=== PATIENT | female | born 1995 | race Caucasian/White ===

== ENCOUNTER → 2021-07-07 | Outpatient (REF) | payer OTHER | LOC: M LAB REF 20:07 | PROVIDERS: ATTEND Physician Assistant | DX: N39.0 Urinary tract infection, site not specified (principal) ==

== ENCOUNTER → 2022-02-25 | Outpatient (REF) | payer OTHER ==
[2022-02-25 15:38] LABS: APPEARANCE, URINE MANUAL CLOUDY (CLEAR); BILIRUBIN, URINE MANUAL NEGATIVE (NEGATIVE); BLOOD URINE MANUAL POSITIVE (NEGATIVE); COLOR, URINE MANUAL YELLOW (YELLOW); GLUCOSE, URINE (UA) MANUAL NEGATIVE (NEGATIVE); KETONE, URINE MANUAL NEGATIVE (NEGATIVE); LEUKOCYTE ESTERASE, URINE MAN POSITIVE (NEGATIVE); NITRITE, URINE MANUAL NEGATIVE (NEGATIVE); PROTEIN, URINE MANUAL 1+ mg/dL (NEGATIVE); UROBILINOGEN, URINE MANUAL NORMAL (NORMAL)
[2022-02-25 15:48] LABS: BACTERIA, URINE MOD AMOUNT; HYALINE CAST, URINE NONE SEEN /lpf (0-1); SQUAMOUS EPITHELIAL CELL URINE MOD AMOUNT /hpf (SMALL AMT); WBC, URINE TNTC /hpf (0-3)
== END ==
LOC: M LAB REF 15:28
PROVIDERS: ATTEND Physician Assistant
DX: N39.0 Urinary tract infection, site not specified (principal)

== ENCOUNTER 2022-06-15 11:56 | Inpatient (IN) | payer OTHER ==
[~2022-06-15] VITALS: Ht 165.1 cm; Wt 51.4 kg
[2022-06-15 13:17] LABS: HEMATOCRIT 36.5 % (36.0-47.0); HEMOGLOBIN 12.7 g/dl (12.0-15.5); MEAN CORPUSCULAR HEMOGLOBIN 30.8 pg (27.0-33.0); MEAN CORPUSCULAR HGB CONC 34.8 g/dl (32.0-36.5); MEAN CORPUSCULAR VOLUME 88.6 fl (80.0-96.0); PLATELET COUNT, AUTOMATED 260 10^3/uL (150-450); RED BLOOD COUNT 4.12 10^6/uL (4.00-5.40); WHITE BLOOD COUNT 7.9 10^3/uL (4.0-10.0)
[2022-06-15 13:46] LABS: AMPHETAMINES LEVEL URINE NEGATIVE (NEGATIVE); BARBITURATES URINE NEGATIVE (NEGATIVE); BENZODIAZEPINES URINE NEGATIVE (NEGATIVE); COCAINE METABOLITE URINE NEGATIVE (NEGATIVE); METHADONE URINE NEGATIVE (NEGATIVE); OPIATES URINE NEGATIVE (NEGATIVE); PHENCYCLIDINE URINE NEGATIVE (NEGATIVE)
[2022-06-15 13:48] LABS: ETHYL ALCOHOL (ETHANOL) 0.003 % (0.000-0.010)
[2022-06-15 13:49] LABS: SALICYLATE LEVEL < 3.0 MG/DL (<30)
[2022-06-15 13:50] LABS: ACETAMINOPHEN LEVEL < 2.0 UG/ML (10.0-20.0); ALBUMIN 4.2 G/DL (3.2-5.2); ALKALINE PHOSPHATASE 43 U/L (46-116); ALT/SGPT 14 U/L (7.0-40); AST/SGOT 13 U/L (<34); BILIRUBIN,DIRECT 0.2 MG/DL (<0.4); BILIRUBIN,TOTAL 0.5 MG/DL (0.3-1.2); BLOOD UREA NITROGEN 19 MG/DL (9-23); CALCIUM LEVEL 9.3 MG/DL (8.5-10.1); CARBON DIOXIDE LEVEL 26 MMOL/L (20-31); CHLORIDE LEVEL 107 MMOL/L (98-107); CREATININE FOR GFR 0.82 MG/DL (0.55-1.30); GLOMERULAR FILTRATION RATE > 60.0 (>60); GLUCOSE, FASTING 76 MG/DL (60-100); POTASSIUM SERUM 4.4 MMOL/L (3.5-5.1); SODIUM LEVEL 140 MMOL/L (136-145); TOTAL PROTEIN 7.3 G/DL (5.7-8.2)
[2022-06-15 13:51] LABS: CANNABINOIDS URINE POSITIVE (NEGATIVE)
[2022-06-15 13:52] LABS: THYROID STIMULATING HORMONE 0.586 uIU/ML (0.55-4.78)
[2022-06-15 14:02] LABS: HCG, SERUM QUALITATIVE NEGATIVE (NEGATIVE)
[2022-06-15] MEDS ORDERED: MAALOX 30 ML SUSP *UDC PO PRN (15:50)
[2022-06-15] MEDS ORDERED: diphenhydrAMINE 25MG CAP PO PRN (15:50)
[2022-06-15] MEDS ORDERED: MOM 30ML SUSPENSION UDC PO PRN (15:50)
[2022-06-15] MEDS ORDERED: ACETAMINOPHEN TAB 650MG DOSE (2X325MG) PO PRN (15:50)
[2022-06-15] MEDS ORDERED: HOME MED LIST COMPLETE! XX SCH (18:15)
[2022-06-15 19:11] VITALS: BP 130/73
[2022-06-15] MEDS: IBUPROFEN 400MG TAB PO PRN (19:17)
[2022-06-15] MEDS ORDERED: RIZATRIPTAN BENZOATE 10 MG TAB PO ONE (19:40)
[2022-06-15] MEDS: traZODone 50 MG TAB PO PRN (20:24)
[2022-06-16] MEDS ORDERED: RIZATRIPTAN BENZOATE 10 MG TAB PO PRN
[2022-06-16 07:00] VITALS: BP 112/54
[2022-06-16] MEDS: IBUPROFEN 400MG TAB PO PRN ×2 (07:18→20:30)
[2022-06-16] MEDS: NICOTINE 21MG/24HR 1 EA TRANSDERMAL TD SCH (08:15)
[2022-06-16 17:43] VITALS: BP 107/71
[2022-06-16] MEDS: PRAZOSIN 1 MG CAP PO SCH (20:30)
[2022-06-16] MEDS: OXcarbazepine 150 MG TAB PO SCH (20:30)
[2022-06-16] MEDS: traZODone 50 MG TAB PO PRN (20:30)
[2022-06-17 06:00] VITALS: BP 113/57
[2022-06-17] MEDS: NICOTINE 21MG/24HR 1 EA TRANSDERMAL TD SCH (09:00)
[2022-06-17] MEDS: OXcarbazepine 150 MG TAB PO SCH ×2 (10:03→20:15)
[2022-06-17 18:00] VITALS: BP 111/65
[2022-06-17] MEDS: PRAZOSIN 1 MG CAP PO SCH (20:15)
[2022-06-17] MEDS: traZODone 50 MG TAB PO PRN (20:15)
[2022-06-18 06:44] VITALS: BP 125/63
[2022-06-18] MEDS: NICOTINE 21MG/24HR 1 EA TRANSDERMAL TD SCH (08:08)
[2022-06-18] MEDS: OXcarbazepine 150 MG TAB PO SCH ×2 (10:11→20:25)
[2022-06-18] MEDS: IBUPROFEN 400MG TAB PO PRN (18:27)
[2022-06-18 18:44] VITALS: BP 119/80
[2022-06-18] MEDS: traZODone 50 MG TAB PO PRN (20:25)
[2022-06-18] MEDS: PRAZOSIN 1 MG CAP PO SCH (20:25)
[2022-06-19 06:52] VITALS: BP 118/64
[2022-06-19] MEDS: NICOTINE 21MG/24HR 1 EA TRANSDERMAL TD SCH (08:55)
[2022-06-19] MEDS: OXcarbazepine 150 MG TAB PO SCH ×2 (08:57→20:05)
[2022-06-19] MEDS: buPROPion **XL** TABLET 150MG (WELLBUTRIN XL) PO SCH (12:26)
[2022-06-19] MEDS: ATOMOXETINE HCL 40 MG CAP (STRATTERA) PO SCH (13:39)
[2022-06-19 16:00] VITALS: BP 133/73
[2022-06-19 20:05] VITALS: BP 133/73
[2022-06-19] MEDS: traZODone 50 MG TAB PO PRN (20:05)
[2022-06-19] MEDS: PRAZOSIN 1 MG CAP PO SCH (20:05)
[2022-06-20 06:54] VITALS: BP 138/66
[2022-06-20] MEDS: buPROPion **XL** TABLET 150MG (WELLBUTRIN XL) PO SCH (08:00)
[2022-06-20] MEDS: NICOTINE 21MG/24HR 1 EA TRANSDERMAL TD SCH (08:00)
[2022-06-20] MEDS: ATOMOXETINE HCL 40 MG CAP (STRATTERA) PO SCH (08:00)
[2022-06-20] MEDS: OXcarbazepine 150 MG TAB PO SCH (08:00)
[2022-06-20] MEDS ORDERED: TRAZ-252 PO (08:25)
[2022-06-20] MEDS ORDERED: NICO21PAT TD (08:25)
[2022-06-20] MEDS ORDERED: BUPR150T12 PO (08:25)
[2022-06-20] MEDS ORDERED: ATOM40CA9 PO (08:25)
[2022-06-20] MEDS ORDERED: MINI1CAP PO (08:25)
[2022-06-20] MEDS ORDERED: OXCA150T21 PO (08:25)
== END 2022-06-20 12:39 | disposition home or self-care (01) | DRG 882 ==
LOC: M ED 11:56 → M ED INP 15:49 → M PSY 18:59
PROVIDERS: ADMIT Psychiatry & Neurology Psychiatry; ATTEND Student in an Organized Health Care Education/Training Program
DX: F43.10 Post-traumatic stress disorder, unspecified (principal); R45.851 Suicidal ideations; F41.1 Generalized anxiety disorder; F90.9 Attention-deficit hyperactivity disorder, unspecified type; F17.290 Nicotine dependence, other tobacco product, uncomplicated; D50.9 Iron deficiency anemia, unspecified; G43.909 Migraine, unspecified, not intractable, without status migrainosus; F12.10 Cannabis abuse, uncomplicated; F60.89 Other specific personality disorders; F45.21 Hypochondriasis; Z91.410 Personal history of adult physical and sexual abuse; Z20.822 Contact with and (suspected) exposure to COVID-19

== ENCOUNTER → 2022-08-27 | Outpatient (REF) | payer OTHER ==
[~2022-08-27] MED LIST: ATOM40CA9 PO; BUPR150T12 PO; MINI1CAP PO; NICO21PAT TD; OXCA150T21 PO; TRAZ-252 PO
[2022-08-27 20:14] LABS: APPEARANCE, URINE HAZY (CLEAR); BACTERIA, URINE AUTO 1+ (NEGATIVE); BILIRUBIN, URINE AUTO NEGATIVE (NEGATIVE); BLOOD, URINE BLOOD NEGATIVE (NEGATIVE); COLOR, URINE AMBER (YELLOW); GLUCOSE, URINE (UA) AUTO NEGATIVE (NEGATIVE); KETONE, URINE AUTO NEGATIVE (NEGATIVE); LEUKOCYTE ESTERASE, URINE AUTO TRACE (NEGATIVE); MUCUS, URINE MODERATE (NEGATIVE); NITRITE, URINE AUTO POSITIVE (NEGATIVE); PROTEIN, URINE AUTO NEGATIVE (NEGATIVE); RBC, URINE AUTO 5 /HPF (0-3); SQUAMOUS EPITHELIAL CELL UR AU 3 /HPF (0-6); WBC, URINE AUTO 46 /HPF (0-3)
== END ==
LOC: M LAB REF 19:38
PROVIDERS: ATTEND Physician Assistant
DX: N39.0 Urinary tract infection, site not specified (principal)

== ENCOUNTER → 2022-11-09 | Outpatient (REF) | payer OTHER ==
[2022-11-09 13:19] LABS: APPEARANCE, URINE HAZY (CLEAR); BACTERIA, URINE AUTO 1+ (NEGATIVE); BILIRUBIN, URINE AUTO NEGATIVE (NEGATIVE); BLOOD, URINE BLOOD 3+ (NEGATIVE); COLOR, URINE YELLOW (YELLOW); GLUCOSE, URINE (UA) AUTO NEGATIVE (NEGATIVE); KETONE, URINE AUTO NEGATIVE (NEGATIVE); LEUKOCYTE ESTERASE, URINE AUTO 2+ (NEGATIVE); MUCUS, URINE SMALL (NEGATIVE); NITRITE, URINE AUTO POSITIVE (NEGATIVE); PROTEIN, URINE AUTO NEGATIVE (NEGATIVE); RBC, URINE AUTO 10 /HPF (0-3); SPECIFIC GRAVITY URINE AUTO 1.021 (1.002-1.035); SQUAMOUS EPITHELIAL CELL UR AU 10 /HPF (0-6); UROBILINOGEN, URINE AUTO 0.2 mg/dL (0.0-2.0); WBC, URINE AUTO 39 /HPF (0-3)
== END ==
LOC: M LAB REF 11:36
PROVIDERS: ATTEND Physician Assistant
DX: N39.0 Urinary tract infection, site not specified (principal)

== ENCOUNTER → 2022-12-01 | Outpatient (REF) | payer OTHER ==
[2022-12-01 17:51] LABS: APPEARANCE, URINE CLOUDY (CLEAR); BACTERIA, URINE AUTO 2+ (NEGATIVE); BILIRUBIN, URINE AUTO NEGATIVE (NEGATIVE); BLOOD, URINE BLOOD 3+ (NEGATIVE); COLOR, URINE YELLOW (YELLOW); GLUCOSE, URINE (UA) AUTO NEGATIVE (NEGATIVE); KETONE, URINE AUTO NEGATIVE (NEGATIVE); LEUKOCYTE ESTERASE, URINE AUTO 3+ (NEGATIVE); MUCUS, URINE SMALL (NEGATIVE); NITRITE, URINE AUTO NEGATIVE (NEGATIVE); PROTEIN, URINE AUTO 2+ mg/dL (NEGATIVE); RBC, URINE AUTO 86 /HPF (0-3); SPECIFIC GRAVITY URINE AUTO 1.016 (1.002-1.035); SQUAMOUS EPITHELIAL CELL UR AU 6 /HPF (0-6); UROBILINOGEN, URINE AUTO 0.2 mg/dL (0.0-2.0); WBC, URINE AUTO 107 /HPF (0-3)
== END ==
LOC: M LAB REF 16:11
PROVIDERS: ATTEND Physician Assistant
DX: N39.0 Urinary tract infection, site not specified (principal)

== ENCOUNTER → 2023-06-08 | Outpatient (REF) | payer OTHER ==
[2023-06-08 22:10] LABS: APPEARANCE, URINE HAZY (CLEAR); BACTERIA, URINE AUTO 1+ (NEGATIVE); BILIRUBIN, URINE AUTO NEGATIVE (NEGATIVE); BLOOD, URINE BLOOD NEGATIVE (NEGATIVE); COLOR, URINE AMBER (YELLOW); GLUCOSE, URINE (UA) AUTO NEGATIVE (NEGATIVE); KETONE, URINE AUTO NEGATIVE (NEGATIVE); LEUKOCYTE ESTERASE, URINE AUTO TRACE (NEGATIVE); MUCUS, URINE SMALL (NEGATIVE); NITRITE, URINE AUTO POSITIVE (NEGATIVE); PROTEIN, URINE AUTO NEGATIVE (NEGATIVE); RBC, URINE AUTO 1 /HPF (0-3); SPECIFIC GRAVITY URINE AUTO 1.012 (1.002-1.035); SQUAMOUS EPITHELIAL CELL UR AU 4 /HPF (0-6); UROBILINOGEN, URINE AUTO 0.2 mg/dL (0.0-2.0); WBC, URINE AUTO 30 /HPF (0-3)
== END ==
LOC: M LAB REF 21:33
PROVIDERS: ATTEND Physician Assistant
DX: N39.0 Urinary tract infection, site not specified (principal)